=== PATIENT | male | born 1980 ===

== ENCOUNTER → 2019-08-22 | Outpatient (CLI) | payer OTHER ==
--- NOTE | 2019-08-22 16:43 | KCIC ---
EXAMINATION: Magnetic resonance imaging (MRI) of the cervical spine without contrast 08/22/2019 3:30 PM HISTORY: Chronic neck and low back pain with left cervical and lumbar radiculopathy. Left upper extremity weakness, progressing in recent months. TECHNIQUE: Multiplanar multi-weighted MRI of the cervical spine was performed without intravenous contrast using the standard cervical spine protocol. Contrast information: None administered COMPARISON: None available. FINDINGS: The alignment of the cervical spine is normal. Vertebral bodies demonstrate normal signal intensity on all sequences. No acute fracture is identified; however, if trauma is suspected, a CT scan would be a more sensitive examination for fractures. The craniocervical junction is normal. The visualized portions of the skull base and the posterior fossa are normal. The spinal cord demonstrates normal signal intensity on all sequences. Intervertebral disks have normal height and signal intensity. There are no annular fissures identified. No soft tissue abnormality is identified. Normal signal voids are present in the vertebral arteries. C2-C3: The disk is normal in configuration. There is no facet arthropathy. There is no uncovertebral joint disease. There is no neuroforaminal stenosis. There is no spinal canal stenosis. C3-C4: The disk is normal in configuration. There is mild left facet arthropathy. There is no uncovertebral joint disease. There is no neuroforaminal stenosis. There is no spinal canal stenosis. C4-C5: The disk is normal in configuration. There is mild facet arthropathy. There is no uncovertebral joint disease. There is no neuroforaminal stenosis. There is no spinal canal stenosis. C5-C6: The disk is normal in configuration. There is no facet arthropathy. There is no uncovertebral joint disease. There is no neuroforaminal stenosis. There is no spinal canal stenosis. C6-C7: The disk is normal in configuration. There is no facet arthropathy. There is no uncovertebral joint disease. There is no neuroforaminal stenosis. There is no spinal canal stenosis. C7-T1: The disk is normal in configuration. There is no facet arthropathy. There is no uncovertebral joint disease. There is no neuroforaminal stenosis. There is no spinal canal stenosis. IMPRESSION: No significant disc herniation, neuroforaminal or spinal canal stenosis. Electronically signed by: Patty Castaneda MD (08/22/2019 4:40 PM) [id number]
--- NOTE | 2019-08-22 17:04 | KCIC ---
EXAMINATION: Magnetic resonance imaging (MRI) of the lumbar spine without contrast 08/22/2019 4:15 PM HISTORY: Chronic neck and low back pain with left cervical and lumbar radiculopathy. TECHNIQUE: Multiplanar multi-weighted MRI of the lumbar spine was performed without intravenous contrast using the standard lumbar spine protocol. Contrast information: None administered. COMPARISON: None available. FINDINGS: There is minimal retrolisthesis of L5 on S1. There is moderate disc height loss at L5-S1 with Modic type II endplate degenerative changes. Disc desiccation is noted at L2-3 and L4, L4-L5 and L5-S1. Annular fissure is noted at L5-S1. Vertebral bodies demonstrate normal signal intensity on all sequences. There are no compression fractures. The conus medullaris terminates at the level of L1. The distal spinal cord signal intensity is normal. Limited views of the abdomen and pelvis show no soft tissue abnormality. The aorta is normal. L1-L2: The disc is normal in configuration. There is no facet arthropathy. There is no neuroforaminal stenosis. There is no spinal canal stenosis. L2-L3: The disc is normal in configuration. There is no facet arthropathy. There is no neuroforaminal stenosis. There is no spinal canal stenosis. L3-L4: The disc is normal in configuration. There is mild facet arthropathy. There is no neuroforaminal stenosis. There is no spinal canal stenosis. L4-L5: There is a disc bulge with left foraminal annular fissure. Mild facet arthropathy with ligamentum flavum infolding. There is moderate left and mild right neuroforaminal stenosis. No spinal canal stenosis. L5-S1: There is a disc bulge with right central disc protrusion. Mild facet arthropathy. Mild to moderate bilateral neuroforaminal stenosis. Narrowing of the right lateral recess may affect the traversing right S1 nerve. IMPRESSION: Mild degenerative changes of the lumbar spine as described in detail above. Electronically signed by: Patty Castaneda MD (08/22/2019 5:00 PM) [id number]
== END | disposition home or self-care (01) ==
LOC: KCIC MRI 15:31
PROVIDERS: ATTEND Physical Medicine & Rehabilitation
DX: M47.26 Other spondylosis with radiculopathy, lumbar region (principal); M46.83 Other specified inflammatory spondylopathies, cervicothoracic region; M47.818 Spondylosis without myelopathy or radiculopathy, sacral and sacrococcygeal region; M46.87 Other specified inflammatory spondylopathies, lumbosacral region; M51.16 Intervertebral disc disorders with radiculopathy, lumbar region; M53.3 Sacrococcygeal disorders, not elsewhere classified; M48.07 Spinal stenosis, lumbosacral region; G89.29 Other chronic pain
CPT/HCPCS: 72141; 72148